=== PATIENT | male | born 1950 | race Caucasian/White ===

== ENCOUNTER 2023-01-24 22:13 | Observation (INO) | payer MEDICARE, BC, SELFPAY ==
[2023-01-24] VITALS (22 sets, daily range): BP systolic 169–181; BP diastolic 89–100; PULSE 81–96; RESP 13–29; TEMP 36.8; O2SAT 93–98
--- NOTE | 2023-01-24 22:30 | DI.CT_ITS ---
Exam(s) CT ABDOMEN PELVIS W EXAM: CT ABDOMEN PELVIS W CLINICAL HISTORY: upper quad abd pain, nausea vomiting TECHNIQUE: Imaging Protocol: Axial computed tomography images with coronal and sagittal reformatted images were created and reviewed CONTRAST MATERIAL: Intravenous: Omnipaque 350 Contrast volume:100 mL Oral: No COMPARISON: No exams were available for comparison FINDINGS: ABDOMEN: Lung Bases: Normal where visualized. Liver: Normal density. No measurable mass. Portal, Superior Mesenteric, and Splenic Veins: Unremarkable. Gallbladder and Biliary Tract: No radiodense calculus or dilation. Pancreas: Normal density, no abnormal calcifications or inflammatory process. Spleen: Normal. Adrenals: No masses seen. Kidneys: Normal size, contour and axis. No radiodense stones or obstructive uropathy. No masses seen. Abdominal Aorta: Abdominal portion non-dilated. Atherosclerosis. Bowel: No obstruction or bowel wall thickening. The appendix is distended measuring 1.7 cm in diamete r. There is an appendicoliths seen proximally. The appendix is fluid-filled. The appendix extends medially from the base of the cecum. There is mild fat stranding around the appendix. There is no s ignificant wall thickening. Peritoneal Cavity: No ascites, collection or mesenteric inflammatory response. No free air. Lymph Nodes: Within normal limits. Bones: Within normal limits for the patient's age. Soft Tissues: Unremarkable. PELVIS: Bladder: Symmetric distention, no gross wall thickening. Reproductive Organs: There is an enlarged prostate gland. Lymph Nodes: Within normal limits. Bones: Within normal limits for the patient's age. IMPRESSION: Findings of an appendix mucocele likely secondary to obstruction from the appendicolith in the base. Findings also suggestive of early appendicitis with mild fat stranding around the appendix. No absc ess or free air. RADIATION DOSE DELIVERED: Total DLP DATA REPOSITORY: All CT scans at this facility are submitted to the National Radiology Data Registry (NRDR) Dose Index Registry (DIR) with the [employer] (A[employer]). RADIATION OPTIMIZATION: All CT scans at this facility use at least one of these dose optimization te chniques: automated exposure control; mA and/or kV adjustment per patient size (includes targeted exa ms where dose is matched to clinical indication); or iterative reconstruction.
--- NOTE | 2023-01-24 22:30 | RT.EKG_ITS ---
APPROVED REPORT Exam: Resting ECG Reason for Exam: upper abd pain Patient Location: E HR:73 bpm ECG Measurements Heart Rate 73 AXIS MI 236 P 54 QRSd 86 QRS -18 QT 383 T -9 QTc 424 Conclusion Sinus arrhythmia...V-rate 58- 84, variation>10% Prolonged MI interval...MI >220, V-rate 50- 90 baseline artifact; sinus rhythm, left axis, non ischemic
--- NOTE | 2023-01-24 22:36 | W.ED.GENAD ---
Discharge Plan Disposition Patient Disposition: Admit to [facility] Condition: Stable Discharge Details Chief Complaint: Nausea/Vomit/Diar Clinical Impression: Appendicitis Primary Care Provider: Krissy,Local ED Provider: Speedy Veliz Medical Decision Making 72-year-old male presents with approximately 5 hours of nausea vomiting upper abdominal discomfort, resolved loose stool multiple episodes earlier today, patient is afebrile, appears uncomfortable active emesis upon arrival, noted to be borderline tachycardic and hypertense likely related to discomfort, abdomen is soft nondistended with tenderness in the upper quadrants no guarding or rebounding appreciated, slight drying of oral mucosa; patient is alert oriented moving all extremities, no headache nonmeningeal; clinical suspicion for viral gastroenteritis versus foodborne illness, must also consider cholecystitis versus biliary colic versus gastritis versus colitis/diverticulitis v appendicitis. Lower suspicion for urinary pathology such as UTI or kidney stone given history and physical. Given patient's age and hypertension on arrival will obtain EKG to screen for any signs of ACS. Low suspicion for aortic pathology such as dissection or aneurysm. Will obtain basic labs, lipase, troponin, CT abdomen pelvis with IV contrast, screening EKG; trial of fluids, antiemetics, famotidine; close reassessment of symptoms disposition pending reassessment and results 23: 08 EKG poor baseline, likely motion artifact, appears sinus rhythm normal axis nonischemic. Elevated white count with left shift on CBC. Given level patient discomfort have added 2mg IV morphine. Pending base metabolic panel creatinine and GFR for CT imaging. 00 31 patient still moderately uncomfortable, given a dose of Toradol upon return from CT scan. CT evidence of early appendicitis. Have added Zosyn 3.375 g IV, have also redosed morphine 2 mg IV. Discussed case with general surgeon Dr. Duran who is planning to perform appendectomy this morning. Patient remains hemodynamically stable. HPI General Date/Time Provider Initiated Documentation: 01/24/23 22:14. HPI Narrative: 72-year-old male presents with approximately 5 hours of upper abdominal discomfort nausea and vomiting, did have multiple episodes of loose stool earlier today that has subsided. No headache chest pain or shortness of breath. Denies history of abdominal surgeries. No recent sick contacts. Related Data Allergies Allergy/AdvReac Type Severity Reaction Status Date / Time lisinopril AdvReac Severe Unverified 01/25/23 00:29 General Stated Complaint: Nausea/Vomit/Diar CADE: 3 Review of Systems Narrative: Review of Systems Constitutional: negative Eyes: negative ENT: negative Cardiovascular: negative Respiratory: negative Gastrointestinal: Abdominal pain nausea vomiting : negative Musculoskeletal: negative Skin: negative Neurologic: negative Psych: negative PFSH All Active Problems (Updated 01/25/23 @ 00:33 by Speedy Veliz MD) Appendicitis (Acute) Social History Smoking/Tobacco Use Status: Never Smoking risk assessment performed?: Yes Drug use: Never Substance use type: does not use Housing: house Do you feel safe at home: Yes Do you feel safe in your relationship?: Yes Exam Narrative Exam Narrative: Physical Examination General: alert, awake, cooperative, appears uncomfortable HEENT: normocephalic, atraumatic; PERRL, EOM intact, conjunctiva normal; no nasal discharge; slight drying of oral mucosa Neck: supple, trachea midline; full ROM Chest: normal to inspection Respiratory: normal respiratory effort, speaking in full sentences, clear to auscultation, no wheezing, rales or rhonchi Cardiac: regular rate, regular rhythm, S1S2 intact, no murmurs rubs or gallops GI: abdomen soft, tender upper quadrants and epigastrium without guarding or rebounding Skin: no lesions, rashes or trauma appreciated Neuro: AAOx3, normal speech, moving all extremities Psych: Appropriate mood and affect Course Vital Signs Vital signs: Vital Signs Temperature 36.8 C 01/24/23 22:26 Pulse 96 H 01/24/23 22:26 Respiratory Rate 20 01/24/23 22:26 Blood Pressure 169/100 H 01/24/23 22:26 Pulse Oximetry 96 01/24/23 22:26 Temperature 36.8 C 01/24/23 22:26 Temperature Source Tympanic 01/24/23 22:26 Pulse 96 H 01/24/23 22:26 Respiratory Rate 20 01/24/23 22:26 Blood Pressure 169/100 H 01/24/23 22:26 Blood Pressure Position Sitting 01/24/23 22:26 Pulse Oximetry 96 01/24/23 22:26 Oxygen Delivery Method Room Air 01/24/23 22:26 Oxygen Flow Rate 0 01/24/23 22:26 Pain Level 8 01/24/23 22:26
[2023-01-24 22:56] LABS: Abs Immature Grans 0.07 10^3/uL (0.0-0.06); Absolute Basophil Count 0.09 10^3/uL (0.0-0.2); Absolute Eosinophil Count 0.05 10^3/uL (0.0-0.7); Absolute Monocyte Count 0.85 10^3/uL (0.1-0.8); Absolute Neutrophil Count 14.04 10^3/uL (1.2-6.7); Basophils % 0.5; Eosinophils % 0.3; HGB 15.2 g/dL (13.5-17.5); Immature Grans % 0.4; Lymphocytes % 14.7; MCH 30.2 pg (27.0-33.0); MCHC 34.5 % (32.0-36.0); MCV 88 fL (80-95); MPV 11.2 fL (8.0-11.0); Monocytes % 4.8; Neutrophils % 79.3; Platelet Count 232 10^3/uL (130-400); RBC 5.03 10^6/uL (4.36-5.78); RDW 12.9 % (11.8-14.1); RDW-SD 41.3 fL
[2023-01-24] MEDS: Famotidine 20 MG/2 ML VIAL IVP (23:01)
[2023-01-24] MEDS: Normal Saline 1,000 ML 1000 ML IV (23:02)
[2023-01-24] MEDS: Ondansetron 4 MG/2 ML VIAL IVP (23:02)
[2023-01-24 23:10] LABS: PTT Activated 18.7 sec (23.6-32.8); Prothrombin Time 10.3 sec (9.1-11.1)
[2023-01-24 23:14] LABS: ALT 44 U/L (16-63); AST 24 U/L (15-37); Albumin 4.3 g/dL (3.4-5.0); Alkaline Phosphatase 64 U/L (46-116); Anion Gap 6.9 mmol/L (3-11); BUN 26 mg/dL (7-18); Bilirubin, Total 0.6 mg/dL (0.2-1.0); CO2 28.1 mmol/L (21.0-32.0); CREATININE 1.6 mg/dL (0.70-1.30); Calcium 9.9 mg/dL (8.5-10.1); Chloride 102 mmol/L (98-107); Estimated GFR 46.06 (mL/min/1.73m2); Glucose 177 mg/dL (74-106); Lipase 30 U/L (16-77); Potassium 3.9 mmol/L (3.5-5.1); Sodium 137 mmol/L (136-145); Total Protein 7.4 g/dL (6.4-8.2); Troponin I < 50 ng/L (<or=60)
[2023-01-24] MEDS: Normal Saline - Diluent 50 ML VIAL IJ (23:48)
[2023-01-24] MEDS: Omnipaque 350 MG/ML 100 ML BTL IJ (23:48)
[2023-01-24] MEDS: Normal Saline Flush 10 ML SYR IVP (23:49)
[2023-01-25] VITALS (38 sets, daily range): BP systolic 99–175; BP diastolic 57–93; PULSE 73–96; RESP 6–32; TEMP 36–36.6; O2SAT 88–99; BMI 31.0
[2023-01-25] LABS: COVID-19 PCR Negative (Negative); Influenza A PCR Negative (Negative); Influenza B PCR Negative (Negative); RSV PCR Negative (Negative); Source Nasopharynx
[2023-01-25] MEDS: Lactated Ringers 250 ML IV (00:03)
[2023-01-25] MEDS: Ketorolac 15 MG/ML VIAL IVP (00:04)
--- NOTE | 2023-01-25 00:21 | DI.VRAD_ITS ---
Addendum created by Rey Marroquin MD on 01/25/2023 12:22:57 AM EST: THIS REPORT CONTAINS FINDINGS THAT MAY BE CRITICAL TO PATIENT CARE. The findings were verbally communicated via telephone conference with Speedy Geiger at 12:22 AM EST on 01/25/2023. The findings were acknowledged and understood. Initial report created on 01/25/2023 12:20:37 AM EST: PROCEDURE INFORMATION: Exam: CT Abdomen And Pelvis With Contrast Exam date and time: 01/24/2023 11:32 PM Age: 72 years old Clinical indication: Nausea and vomiting; Abdominal pain; Other: Upper quad abd pain TECHNIQUE: Imaging protocol: Computed tomography of the abdomen and pelvis with contrast. Contrast material: OMNI 350; Contrast volume: 100 ml; Contrast route: INTRAVENOUS (IV); COMPARISON: No relevant prior studies available. FINDINGS: Lungs: Lung bases are clear. Liver: Liver attenuation is low. Negative for mass or abscess. Gallbladder and bile ducts: Normal. No calcified stones. No ductal dilation. Pancreas: Normal. No ductal dilation. Spleen: Normal. No splenomegaly. Adrenal glands: Normal. No mass. Kidneys and ureters: Symmetric enhancement. No hydronephrosis. Non-dilated ureters. No stones. Stomach and bowel: Unremarkable stomach. Nondilated small bowel. Negative for inflammatory changes around the colon. Appendix: The appendix is moderately distended, 17 mm. An appendicolith is noted at the base. There is no significant wall thickening in the appendix. Mild fat stranding is noted around the appendiceal base. Intraperitoneal space: No free fluid. No free air. No abscess. Vasculature: Mild vascular calcifications. Negative for abdominal aortic aneurysm. Lymph nodes: Unremarkable. No enlarged lymph nodes. Urinary bladder: Unremarkable as visualized. Reproductive: Hydroceles noted in the scrotum, partially visualized. Bones/joints: Negative for compression fracture. Multilevel degenerative disc disease and facet arthropathy noted. Neural foraminal narrowing and spinal canal stenosis noted at L3-L4, L4-L5, and L5-S1. Soft tissues: Unremarkable. IMPRESSION: 1. Appendiceal mucocele and early appendicitis. 2. Hepatic steatosis. Dictated and Authenticated by: Rey Marroquin MD. Ordering:PNITIN Ruff MD
[2023-01-25] MEDS: PIPERACILLIN/TAZO 3.375 GM in Normal Saline 50 ML IVPB (00:38)
--- NOTE | 2023-01-25 01:44 | HPE_ITS ---
Date of service: 01/25/23 Time of Service: 01:44 Assessment and Plan Assessment and plan (1) Appendicitis: Status: Acute Assessment and plan: The history, leukocytosis, and exam are all consistent with acute appendicitis. We discussed treatment options for acute appendicitis, and I do recommend appendectomy. We also reviewed the interpretation of the CAT scan, specifically the description of appendiceal mucocele. I explained that that can be associated with appendiceal cancers. I explained that if there are any concerning clinical features during the conduct of the operation that support the diagnosis of a mucinous neoplasm, then we may need to convert to an open operation, or extend the extent of the resection. I think he has a good understanding of this. He is able to provide informed consent, we will make arrangements to proceed with emergency appendectomy. History of Present Illness History of Present Illness Chief Complaint: Abdominal pain with nausea and vomiting Narrative: Burt is 72 years old, he comes to the emergency department after the cute onset of abdominal pain. This started around 5 PM on Friday night. It was sharp and stabbing. It was mostly around the umbilicus. Very quickly thereafter, he developed nausea and several episodes of vomiting. He had no relief to his abdominal discomfort. He came to the emergency department was found of a white blood cell count around 17,000. He underwent a CAT scan of the abdomen and pelvis that demonstrated a dilated appendix interpreted as mucocele, with signs of early appendicitis. He also had a slightly elevated serum creatinine suggestive of dehydration. Other past medical history significant for hypertension and hypothyroidism. He had a normal colonoscopy a few years ago. Review of Systems Constitutional Constitutional: Reports difficulty sleeping, Denies fatigue, Denies fever(s), Denies lethargy, Denies night sweats, Reports poor appetite and Denies weight loss Eyes Eyes: Reports system reviewed and no additional complaints, except as documented ENT Ears, Nose, Mouth, and Throat: Reports system reviewed and no additional complaints, except as documented Cardiovascular Cardiovascular: Denies chest pain and Denies dyspnea Respiratory Respiratory: Denies chest congestion, Denies cough and Denies dyspnea Gastrointestinal Gastrointestinal: Reports abdominal pain, Reports diarrhea, Reports nausea and Reports vomiting Genitourinary Genitourinary: Reports system reviewed and no additional complaints, except as documented Musculoskeletal Musculoskeletal: Reports system reviewed and no additional complaints, except as documented Neurologic Neurologic: Reports system reviewed and no additional complaints, except as documented Endocrine Endocrine: Denies cold intolerance, Denies fatigue and Denies heat intolerance Hematologic/Lymphatic Hematologic/Lymphatic: Denies easy bleeding and Denies easy bruising PFSH All Active Problems Appendicitis (Acute) Social History Smoking/Tobacco Use Status: Never Smoking risk assessment performed?: Yes Drug use: Never Substance use type: does not use Housing: house Do you feel safe at home: Yes Do you feel safe in your relationship?: Yes Meds Allergies and Home Medications Allergies Allergy/AdvReac Type Severity Reaction Status Date / Time lisinopril AdvReac Severe Unverified 01/25/23 00:29 Home Medications Medication Instructions Recorded Confirmed Type albuterol sulfate 90 mcg/actuation 2 inh inhalation Q4H PRN 01/25/23 01/25/23 History aerosol inhaler amlodipine 5 mg tablet 5 mg PO DAILY 01/25/23 01/25/23 History atenolol 25 mg tablet 25 mg PO DAILY 01/25/23 01/25/23 History budesonide-formoterol HFA 160 2 inh inhalation BID 01/25/23 01/25/23 History mcg-4.5 mcg/actuation aerosol inhaler gabapentin 300 mg capsule 300 mg PO DAILY 01/25/23 01/25/23 History hydrocortisone acetate 25 mg 25 mg NC DAILY PRN 01/25/23 01/25/23 History rectal suppository (Anucort-HC) levothyroxine 175 mcg tablet 175 mcg PO DAILY 01/25/23 01/25/23 History (Euthyrox) losartan 50 mg tablet 50 mg PO DAILY 01/25/23 01/25/23 History propylene glycol (PF) 0.6 % eye 2 drp ophthalmic (eye) DAILY PRN 01/25/23 01/25/23 History drops (Systane Complete PF) tamsulosin 0.4 mg capsule 0.4 mg PO DAILY 01/25/23 01/25/23 History Exam Const General: cooperative, not in distress, not anxious and ill appearing Nutritional Appearance: average body habitus and well nourished Orientation: alert, awake and oriented x3 Resp Effort & Inspection: normal respiratory effort and able to speak in complete sentences Auscultation: clear to auscultation bilaterally Cardio Rate: regular rate Rhythm: regular rhythm Heart Sounds: S1 normal and S2 normal GI Inspection: normal to inspection and non-distended Palpation: soft, guarding, no hernias, no masses and tender (Periumbilical and lower abdominal) Percussion: normal to percussion Auscultation: normal bowel sounds Extrem Right lower extremity: no edema Left lower extremity: no edema Psych Appearance: grossly normal Mood: congruent mood Affect: normal affect Results Labs 01/24/23 22:53 01/24/23 22:53 Labs: Laboratory Results - last 24 hr 01/24/23 01/24/23 22:53 23:20 WBC 17.70 H RBC 5.03 Hgb 15.2 Hct 44.0 MCV 88 MCH 30.2 MCHC 34.5 RDW 12.9 Plt Count 232 MPV 11.2 H Immature Gran % 0.4 Neutrophils % 79.3 Lymphocytes % 14.7 Monocytes % 4.8 Eosinophils % 0.3 Basophils % 0.5 Nucleated RBC % 0.0 Absolute Neutrophils 14.04 H Absolute Lymphocytes 2.60 Absolute Monocytes 0.85 H Absolute Eosinophils 0.05 Absolute Basophils 0.09 PT 10.3 INR 1.0 APTT 18.7 L Sodium 137 Potassium 3.9 Chloride 102 Carbon Dioxide 28.1 Anion Gap 6.9 BUN 26 H Creatinine 1.6 H Est GFR (CKD-EPI 2020) 46.06 Glucose 177 H Calcium 9.9 Total Bilirubin 0.6 AST 24 ALT 44 Alkaline Phosphatase 64 Troponin I < 50 Total Protein 7.4 Albumin 4.3 Lipase 30 COVID-19 Source Nasopharynx SARS-CoV-2 (PCR) Negative Influenza Type A (PCR) Negative Influenza Type B (PCR) Negative RSV (PCR) Negative Last Vital Signs Temp 98.2 F 01/24/23 22:26 Pulse 88 01/25/23 01:27 Resp 21 01/25/23 01:27 BP 158/86 H 01/25/23 01:27 Pulse Ox 97 01/25/23 01:27 Time Spent Time spent with Patient: 55-74 minutes Time was spent: preparing to see the patient(eg.review tests), obtaining and/or reviewing separately otained hiistory, referring, communicating with other health director of critical care, indepentently interpreting results, counseling the patient and care coordination
--- NOTE | 2023-01-25 02:09 | ANES.PREOP_ITS ---
General Info Date of Service Date Performed: 01/25/23 Height: 5 ft 8 in Weight: 92.533 kg Body Mass Index (BMI): 31.0 Surgical Procedure: Laparoscopic appendectomy Meds Allergies and Home Medications Allergies Allergy/AdvReac Type Severity Reaction Status Date / Time lisinopril AdvReac Severe Unverified 01/25/23 00:29 Home Medication Medication Instructions Recorded albuterol sulfate 90 mcg/actuation 2 inh inhalation Q4H PRN 01/25/23 aerosol inhaler amlodipine 5 mg tablet 5 mg PO DAILY 01/25/23 atenolol 25 mg tablet 25 mg PO DAILY 01/25/23 budesonide-formoterol HFA 160 2 inh inhalation BID 01/25/23 mcg-4.5 mcg/actuation aerosol inhaler gabapentin 300 mg capsule 300 mg PO DAILY 01/25/23 hydrocortisone acetate 25 mg 25 mg CA DAILY PRN 01/25/23 rectal suppository (Anucort-HC) levothyroxine 175 mcg tablet 175 mcg PO DAILY 01/25/23 (Euthyrox) losartan 50 mg tablet 50 mg PO DAILY 01/25/23 propylene glycol (PF) 0.6 % eye 2 drp ophthalmic (eye) DAILY PRN 01/25/23 drops (Systane Complete PF) tamsulosin 0.4 mg capsule 0.4 mg PO DAILY 01/25/23 Current Visit Medications: Current Medications Generic Name Dose Route Start Last Admin Trade Name Freq PRN Reason Stop Dose Admin Iohexol 100 ml 01/24/23 23:45 01/24/23 23:48 Omnipaque 350 Mg/Ml 100 Ml Btl IJ 02/23/23 23:59 100 ml DIRECTED FOSTER Administration Sodium Chloride 50 ml 01/24/23 23:45 01/24/23 23:48 Normal Saline - Diluent 50 Ml Vial IJ 50 ml .FOR DI USE FOSTER Administration Sodium Chloride 0 ml 01/24/23 23:49 01/24/23 23:49 Normal Saline Flush 10 Ml Syr IVP 10 ml PRN PRN Administration PFSH Active Problems Active Problems: Problem Status Onset Code Appendicitis K37 Tobacco Smoking/Tobacco Use Status: Never Substance Use Substance use: Never Substance use type: does not use Vital Signs and Lab Results Vital Signs Most Recent Vital Signs in EMR: Most Recent Vital Signs Temp Pulse Resp BP Pulse Ox 36.8 C 88 21 158/86 H 97 01/24/23 22:26 01/25/23 01:27 01/25/23 01:27 01/25/23 01:27 01/25/23 01:27 Lab Results 01/24/23 22:53 01/24/23 22:53 Blood Type / Crossmatch: 2 No Data to Display Complete Blood Count: 2 White Blood Count 17.70 10^3/uL (4.4-10.8) H 01/24/23 22:53 Red Blood Count 5.03 10^6/uL (4.36-5.78) 01/24/23 22:53 Hemoglobin 15.2 g/dL (13.5-17.5) 01/24/23 22:53 Hematocrit 44.0 % (40.0-50.0) 01/24/23 22:53 Platelet Count 232 10^3/uL (130-400) 01/24/23 22:53 Complete Metabolic Panel: 2 Sodium 137 mmol/L (136-145) 01/24/23 22:53 Potassium 3.9 mmol/L (3.5-5.1) 01/24/23 22:53 Chloride 102 mmol/L (98-107) 01/24/23 22:53 Carbon Dioxide 28.1 mmol/L (21.0-32.0) 01/24/23 22:53 BUN 26 mg/dL (7-18) H 01/24/23 22:53 Creatinine 1.6 mg/dL (0.70-1.30) H 01/24/23 22:53 Est GFR (CKD-EPI 2020) 46.06 (mL/min/1.73m2) 01/24/23 22:53 Calcium 9.9 mg/dL (8.5-10.1) 01/24/23 22:53 Albumin 4.3 g/dL (3.4-5.0) 01/24/23 22:53 Glucose 177 mg/dL (74-106) H 01/24/23 22:53 Liver Function Panel: 2 Alanine Aminotransferase (ALT/SGPT) 44 U/L (16-63) 01/24/23 22: 53 Aspartate Amino Transf (AST/SGOT) 24 U/L (15-37) 01/24/23 22:53 Coagulation Panel: 2 INR International Normalized Ratio 1.0 (0.9-1.1) 01/24/23 22:5 3 Prothrombin Time 10.3 sec (9.1-11.1) 01/24/23 22:53 Activated Partial Thromboplast Time 18.7 sec (23.6-32.8) L 01/24/23 22:53 Cardiac Panel: 2 Troponin I < 50 ng/L (<or=60) 01/24/23 Arterial Blood Gas: 2 No Data to Display Venous Blood Gas: 2 No Data to Display Pancreas Panel: 2 Lipase 30 U/L (16-77) 01/24/23 22:53 Thyroid Panel: 2 No Data to Display Infectious Disease: 2 Coronavirus (COVID-19)(PCR) Negative (Negative) 01/24/23 23:20 Coronavirus 2019 Source Nasopharynx 01/24/23 23:20 Influenza Virus Type A (PCR) Negative (Negative) 01/24/23 23:2 0 Influenza Virus Type B (PCR) Negative (Negative) 01/24/23 23:2 0 Respiratory Syncytial Virus (PCR) Negative (Negative) 01/24/23 23:20 Blood Cultures: 2 No Data to Display Toxicology Panel: 2 No Data to Display Imaging and Studies Imaging and Studies Study information below may be from another EMR and interpreted by another provider. Please see original notes in EMR for more complete details. EKG Summary: Conclusion Sinus arrhythmia...V-rate 58- 84, variation>10% Prolonged CA interval...CA >220, V-rate 50- 90 01/24/23 Anesthesia Assessment and Plan Anesthesia History Personal History: No History of Anesthesia Complications Family History: No Family History of Anesthesia Complications Exercise Tolerance Exercise Tolerance: Metabolic Equivalents>4 Pertinent Negatives Pertinent Negatives: No Major Cardiovascular Symptoms or Complaints, No Major Pulmonary Symptoms or Complaints and No History of CVA/TIA Cardiac & Pulmonary Exam Cardiac Exam: Normal S1/S2 Heart Sounds Pulmonary Exam: Clear Bilateral Breath Sounds Implantable Cardiac Device Does patient have a Pacemaker or an ICD?: No Airway Exam Known Difficult Airway: No Mallampati Class: 2 Mouth Opening: Normal (> 3cm) Thyromental Distance: Greater than 3 cm Neck Range of Motion: Full ROM Neck Circumference: Normal Teeth Condition: Normal Dentition ASA Classification ASA Score: ASA 2 Emergency Case?: Yes NPO Status NPO Status: NPO Clears >2 hours, Solids >8 hours Anesthesia Plan Resuscitation Status: Full Code Anesthesia Technique: General Anesthesia Airway Planned: Endotracheal Tube Monitors Used: Standard Monitors Preoperative Comments:: HTN, hypothyroid, asthma, no rescue inhaler use, stress induced hypotension, hx of lumbar surgery L4-5
[2023-01-25] MEDS: Lactated Ringers 1,000 ML 30 ML IV (03:12)
[2023-01-25] MEDS: Bupivacaine 0.25% Pres-Free 30 ML VIAL (03:53)
--- NOTE | 2023-01-25 04:03 | APP_PTH ---
PATIENT: Burt Fam LOC: U#:[id number] AGE/SX: 72/M ROOM: [facility] RE01/25/[address]: Anoop Duran MD : 1950 BED: A DIS: 01/25/2023 SPEC #: [id number] RECD: 01/27/23 13:05 STATUS: LONA REQ #: [id number] YOBANY: 01/25/23 04:[address]: Anoop Duran DEPT: Surgical Specimen RECD BY: Jessica eSrrano ENTERED: 01/27/23 13:05 SP TYPE: Appendix OTHR DR: No Local Tissues: 1 - APPENDIX NOT INCIDENTAL Procedures: GROSS AND MICRO LEVEL 3 Comments: [id number]
--- NOTE | 2023-01-25 04:16 | ROE_ITS ---
Date of service: 01/25/23 Time of Service: 04:16 Operative Note Operative Note DATE OF PROCEDURE: 01/25/23 PRE-OP DIAGNOSIS: Acute appendicitis POST-OP DIAGNOSIS: same PROCEDURE: Laparoscopic appendectomy SURGEON: Anoop Duran DIRECTOR CORPORATE SECURITY: Pramod Valdez ANESTHESIA TYPE: General LMA/ETT Refer to Anesthesia Record ESTIMATED BLOOD LOSS: 15 PATHOLOGY: other (Appendix) COMPLICATIONS: None Patient was transported to: PACU Patient's condition: stable Indications: Burt is a 9-year-old male with acute onset of periumbilical abdominal pain with nausea and vomiting. 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 Findings: Dilated fluid-filled appendix Procedure Description: After the induction of general anesthesia, I prepped and draped the anterior abdominal wall in the usual fashion. Next, I made an umbilical incision. I opened the fascia under direct vision. Using Vicryl stitches, I then affixed a 12 mm operating port to the umbilical fascia. I began insufflated the peritoneal cavity. Next, I inserted a 5 mm scope and examine the underlying tissue. There was no evidence of any trauma from the insertion. Next, with the assistance of the laparoscope, I placed 5 mm port in the left lower quadrant and suprapubic position. There was a midline peritoneal fat, therefore, the suprapubic port was placed slightly towards the patient's right side. I then moved the scope into the left lower quadrant, and positioned the patient with some Trendelenburg and left side down. I started by examining the area of the right lower quadrant. I reflected the greater omentum cephalad and moved some of the small intestine towards the left upper quadrant in order to identify the terminal ileum. I traced this to the insertion at the cecum and then identified the base of the appendix at the confluence of the cecal tenia. The appendix was quite dilated, and I used the LigaSure to dissect and divide the mesoappendix. Great care was taken to skeletonize the base of the appendix which felt soft, and did not appear acutely inflamed. Once this was complete I divided the appendix with a cuff of cecum using a NERISSA stapler. I tried to stay high on the cecum in the case that this might be a true appendiceal mucocele. There was no spillage during the division. I immediately placed the appendix into an Endo Catch bag and removed through the umbilical port site. I examined the surgical field. The staple line looked fine. There was no contamination or any spillage and the surgical field was hemostatic. I then removed the port sites under the vision the laparoscope and closed the umbilical fascia with 0 Vicryl stitches. Finally, irrigated the skin and approximated the dermis with subcuticular absorbable suture.
--- NOTE | 2023-01-25 05:00 | W.ANESPOSTOP ---
Postoperative Evaluation Date, Time and Location Date Performed: 01/25/23 Time Performed: 04:49 Patient Location: PACU Vital Signs Most Recent Imported Vital Signs: Most Recent Vital Signs Temp Pulse Resp BP Pulse Ox 36.5 C 82 13 99/57 L 96 01/25/23 04:36 01/25/23 04:36 01/25/23 04:36 01/25/23 04:36 01/25/23 04:36 Pain Score Most Recent Pain Score: Most Recent Pain Score Pain Level 8 01/25/23 04:01 Temp Pulse Resp BP Pulse Ox 36.5 C 82 13 99/57 L 96 01/25/23 04:36 01/25/23 04:36 01/25/23 04:36 01/25/23 04:36 01/25/23 04:36 Pain level 0/10 at 0451 Assessment Mental Status: Awake (Alert & Oriented to Patient Baseline) Airway and Respiratory Function: Patent airway with normal (patient baseline) respiratory exam Cardiovascular Function: Hemodynamically Stable Hydration Status: Adequately Hydrated Nausea & Vomiting: No Nausea or Vomiting Pain: Pt. Denies Any Pain Peripheral Nerve Block: Patient did not receive a nerve block
[2023-01-25] MEDS: Levothyroxine 175 MCG TAB PO (06:00)
--- NOTE | 2023-01-25 07:51 | W.PM.DS.N ---
Date of service: 01/25/23 Time of Service: 07:51 DS: Diagnosis Discharge Diagnosis (1) Appendicitis: Status: Acute Asessment and Plan: s/p laparoscopic appendectomy Discharge Plan Disposition Patient Disposition: Home Condition: Good Discharge Details Reason For Visit: Acute appendicitis Admit Date/Time: 01/25/23 04:14 Admit Provider: Anoop Duran Attending Provider: Anoop Duran [facility] Hospital Course: Burt is 72 years old. He comes to the hospital with acute onset of abdominal pain. He underwent a CAT scan that demonstrated dilated fluid-filled appendix, and was brought to the operating room for laparoscopic appendectomy. Surgery was uneventful. He felt well the next morning, was tolerating a diet and discharged home. Home Meds and New Rx's Prescriptions: New tramadol 50 mg tablet 50 mg PO Q8H PRNQty: 9 0RF Rx Instructions: Take one tablet by mouth up to every 8 hours if needed for severe pain. Do not drive while using this medication. Continued gabapentin 300 mg capsule 300 mg PO DAILY amlodipine 5 mg tablet 5 mg PO DAILY tamsulosin 0.4 mg capsule 0.4 mg PO DAILY losartan 50 mg tablet 50 mg PO DAILY levothyroxine [Euthyrox] 175 mcg tablet 175 mcg PO DAILY atenolol 25 mg tablet 25 mg PO DAILY hydrocortisone acetate [Anucort-HC] 25 mg suppository 25 mg CA DAILY PRN budesonide-formoterol 160-4.5 mcg/actuation HFA aerosol inhaler 2 inh inhalation BID albuterol sulfate 90 mcg/actuation HFA aerosol inhaler 2 inh inhalation Q4H PRN Systane Complete PF 0.6 % drops 2 drp ophthalmic (eye) DAILY PRN Discharge Instructions Instructions: Laparoscopic Appendectomy (DC) Additional Instructions: 1. Resume all of your medications. 2. Use ice packs and heating pads as needed to help with pain. 3. Okay to use tylenol and ibuprofen over the counter as needed. Use trmadol for pain if needed 4. Leave bandages in place for 24 hours, then remove. 5. Shower with warm soapy water. Pat dry. Use a bandaid if needed to protect your clothing. 6. No soaking or tub bathsfor 1 week. 7. No lifting greater than 10 pounds for 2 weeks. 8. Call the office (or go directly to the emergency room after hours) if you notice any of the following: Develop chills (warm to touch), or if you have a thermometer and your temperature is above 101 Difficulty breathing or difficultly swallowing Persistent vomiting Any bleeding ? exceeding one tablespoon 9. Call your physician if the site where your intravenous was started becomes red, swollen, painful, and warm to touch. Activity:: ne heavy lifting Equipment/Supplies:: No Equipment Needed Diet:: As Tolerated DS: Summary Time Spent with Patient providing and/or coordinating discharge services: Less than 30 minutes Status at Discharge Functional status at discharge: independent ambulation Overall status at discharge: patient is back to baseline Mental Status: mental status grossly normal Speech and Movement: speech and movement normal Mood: congruent mood Affect: normal affect Exam GI Palpation: soft, no guarding and tender (appropriate post op tenderness) Percussion: normal to percussion Auscultation: normal bowel sounds Psych Mental Status: mental status grossly normal Speech and Movement: speech and movement normal Mood: congruent mood Affect: normal affect DS: Data Vitals/I&O Vitals and I&O: Vital Signs Temperature 96.8 F L 01/25/23 05:18 Temperature Source Tympanic 01/25/23 05:18 Pulse 87 01/25/23 05:18 Pulse Rhythm Regular 01/25/23 05:03 Pulse 81 01/25/23 00:20 Respiratory Rate 18 01/25/23 05:18 Respiratory Effort Normal, Non-Labored 01/25/23 05:03 Respiratory Depth Normal 01/25/23 05:03 Blood Pressure 127/83 01/25/23 05:18 Blood Pressure Mean 119 01/25/23 00:16 Blood Pressure Position Sitting 01/24/23 22:26 Pulse Oximetry 93 01/25/23 05:18 Respiratory End-tidal CO2 39 01/25/23 04:53 Oxygen Delivery Method Room Air 01/25/23 05:18 Oxygen Flow Rate 0 01/25/23 05:18 Pain Level 0 01/25/23 05:18 Intake & Output 01/24/23 01/24/23 01/25/23 11:59 23:59 11:59 Intake Total 1000 / 1000 1750 / 1750 Output Total 150 / 150 Balance 1000 / 1000 1600 / 1600 Weight 204 lb 203 lb Intake: IV 1000 / 1000 750 / 750 Other 1000 / 1000 Output: Urine 150 / 150 Other: Urine Color Pale Urine Appearance Clear Stool Characteristics Soft Emesis Description Retching Retching # Voids 1 Data Completed and Pending Labs on day of discharge: Labs from last 24 hours 01/25/23 01/24/23 01/24/23 05:16 23:20 22:53 WBC 17.70 H RBC 5.03 Hgb 15.2 Hct 44.0 MCV 88 MCH 30.2 MCHC 34.5 RDW 12.9 Plt Count 232 MPV 11.2 H Immature Gran % 0.4 Neutrophils % 79.3 Lymphocytes % 14.7 Monocytes % 4.8 Eosinophils % 0.3 Basophils % 0.5 Nucleated RBC % 0.0 Absolute Neutrophils 14.04 H Absolute Lymphocytes 2.60 Absolute Monocytes 0.85 H Absolute Eosinophils 0.05 Absolute Basophils 0.09 PT 10.3 INR 1.0 APTT 18.7 L Sodium Pending 137 Potassium Pending 3.9 Chloride Pending 102 Carbon Dioxide Pending 28.1 Anion Gap Pending 6.9 BUN Pending 26 H Creatinine Pending 1.6 H Est GFR (CKD-EPI 2020) Pending 46.06 Glucose Pending 177 H Calcium Pending 9.9 Total Bilirubin 0.6 AST 24 ALT 44 Alkaline Phosphatase 64 Troponin I < 50 Total Protein 7.4 Albumin 4.3 Lipase 30 COVID-19 Source Nasopharynx SARS-CoV-2 (PCR) Negative Influenza Type A (PCR) Negative Influenza Type B (PCR) Negative RSV (PCR) Negative PFSH All Active Problems Appendicitis (Acute) Social History Smoking/Tobacco Use Status: Never Smoking risk assessment performed?: Yes Drug use: Never Substance use type: does not use Housing: house Do you feel safe at home: Yes Do you feel safe in your relationship?: Yes Time Spent with Patient Time Spent with Patient: <45 minutes Time was spent: preparing to see the patient(eg.review tests), counseling the patient and care coordination
[2023-01-25 08:16] LABS: Anion Gap 7.7 mmol/L (3-11); BUN 23 mg/dL (7-18); CO2 25.3 mmol/L (21.0-32.0); CREATININE 1.7 mg/dL (0.70-1.30); Chloride 103 mmol/L (98-107); Estimated GFR 42.83 (mL/min/1.73m2); Glucose 183 mg/dL (74-106); Potassium 4.5 mmol/L (3.5-5.1); Sodium 136 mmol/L (136-145)
--- NOTE | 2023-01-25 08:27 | W.PM.PROGNOT ---
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 Discharge home today. Subjective Subjective Interval history since last seen: He looks great after appendectomy last night. His pain is controlled and he has no nausea or vomiting. Exam GI Other: Abdomen is soft and just a tiny bit tender near the incisions. Bandages are clean and dry. Objective Last Vital Signs Temp 97.7 F 01/25/23 07:52 Pulse 96 H 01/25/23 07:52 Resp 18 01/25/23 07:52 BP 132/75 01/25/23 07:52 Pulse Ox 95 01/25/23 07:52 Laboratory Results - last 24 hr 01/24/23 01/24/23 22:53 23:20 WBC 17.70 H RBC 5.03 Hgb 15.2 Hct 44.0 MCV 88 MCH 30.2 MCHC 34.5 RDW 12.9 Plt Count 232 MPV 11.2 H Immature Gran % 0.4 Neutrophils % 79.3 Lymphocytes % 14.7 Monocytes % 4.8 Eosinophils % 0.3 Basophils % 0.5 Nucleated RBC % 0.0 Absolute Neutrophils 14.04 H Absolute Lymphocytes 2.60 Absolute Monocytes 0.85 H Absolute Eosinophils 0.05 Absolute Basophils 0.09 PT 10.3 INR 1.0 APTT 18.7 L Sodium 137 Potassium 3.9 Chloride 102 Carbon Dioxide 28.1 Anion Gap 6.9 BUN 26 H Creatinine 1.6 H Est GFR (CKD-EPI 2020) 46.06 Glucose 177 H Calcium 9.9 Total Bilirubin 0.6 AST 24 ALT 44 Alkaline Phosphatase 64 Troponin I < 50 Total Protein 7.4 Albumin 4.3 Lipase 30 COVID-19 Source Nasopharynx SARS-CoV-2 (PCR) Negative Influenza Type A (PCR) Negative Influenza Type B (PCR) Negative RSV (PCR) Negative Time Spent with Patient Time Spent with Patient: 25-34 minutes Time was spent: preparing to see the patient(eg.review tests) and counseling the patient
[2023-01-25] MEDS: Budesonide/Formoterol 160/4.5 6 GM 60 PUFF INH IH (08:42)
[2023-01-25] MEDS: Losartan 50 MG TAB PO (08:42)
[2023-01-25] MEDS: Tamsulosin 0.4 MG CAPCR PO (08:42)
[2023-01-25] MEDS: Atenolol 25 MG TAB PO (08:43)
== END 2023-01-25 10:12 | disposition home or self-care (01) ==
LOC: ER 01-25 00:39 → SUR 01-25 02:57 → MS 01-25 04:33
PROVIDERS: Emergency Medicine; Admitting Provider Surgery; Emergency Provider Student in an Organized Health Care Education/Training Program; Visit Provider Surgery
PROC: 0DTJ4ZZ Resection of Appendix, Percutaneous Endoscopic Approach (ICD-10-PCS; CPT 44970; principal; 2023-01-25 02:15)
DX: K35.80 Unspecified acute appendicitis (principal); Z79.899 Other long term (current) drug therapy; R94.31 Abnormal electrocardiogram [ECG] [EKG]; I10 Essential (primary) hypertension; E03.9 Hypothyroidism, unspecified; J45.909 Unspecified asthma, uncomplicated
CPT/HCPCS: 44970; 80048; 80053; 83690; 87637; 93005; 94640; 96360; 96361; 96365; 96375; 96376; 99223; 99285; 74177; 84484; 85025; 85610; 85730; 88304; 93010; G0378; J0131; J1100; J1885; J2405; J2543; J2704; J3490